=== PATIENT | male | born 1975 | race Caucasian/White ===

== ENCOUNTER 2018-12-18 23:46 | Observation (INO) | payer BC ==
[~2018-12-18] VITALS: Ht 182.9 cm; Wt 145.2 kg
[2018-12-19 00:48] LABS: BASOPHILS ABSOLUTE AUTO 0.06 K/mm3 (0.00-0.23); BASOPHILS PERCENT AUTO 1 % (0-2); EOSINOPHILS ABSOLUTE AUTO 0.18 K/mm3 (0.00-0.68); EOSINOPHILS PERCENT AUTO 2 % (0-6); Hematocrit 42.8 % (37.0-53.0); Hemoglobin 13.7 g/dL (13.5-17.5); IMMATURE GRAN ABSOLUTE AUTO 0.06 K/mm3 (0.00-0.10); IMMATURE GRAN PERCENT AUTO 1 % (0-1); LYMPHOCYTES ABSOLUTE AUTO 3.04 K/mm3 (0.84-5.20); LYMPHOCYTES PERCENT AUTO 33 % (21-46); MONOCYTES PERCENT AUTO 7 % (4-13); Mean Corpuscular HGB 26.8 pg (26.0-34.0); Mean Corpuscular Volume 84 fL (80-100); Mean Platelet Volume 10.6 fL (9.1-12.4); NEUTROPHILS ABSOLUTE AUTO 5.17 K/mm3 (1.96-9.15); NEUTROPHILS PERCENT AUTO 57 % (41-73); Platelet Count 294 K/mm3 (150-400); RDW Coefficient Variation 14.8 % (11.7-14.2); Red Blood Cell Count 5.12 M/mm3 (4.30-5.90); White Blood Cell Count 9.11 K/mm3 (4.00-11.30)
[2018-12-19 01:03] LABS: International Normalized Ratio 0.92; Prothrombin Time Results 9.8 Sec (9.7-11.5)
[2018-12-19 01:05] LABS: Alanine Aminotransfer (ALT/SGP 48 U/L (12-78); Albumin, Blood 3.6 g/dL (3.4-5.0); Albumin/Globulin Ratio 0.9 (0.8-1.8); Alk Phos 89 U/L (50-136); Anion Gap 7 mmol/L (6-16); Aspartate Aminotrans (AST/SGOT 25 U/L (12-37); Bilirubin, Total 0.3 mg/dL (0.1-1.0); Blood Urea Nitrogen 25 mg/dL (8-24); Bun/Creatinine Ratio 19.5 (12.0-20.0); CO2, Blood 30 mmol/L (21-32); Calcium, Blood 9.1 mg/dL (8.5-10.1); Chloride, Blood 100 mmol/L (98-108); Creatinine, Blood 1.28 mg/dL (0.60-1.20); Globulin, Blood 3.8 g/dL (2.2-4.0); Glomerular Filtration Rate >60 (60-); Glucose, Blood 199 mg/dL (70-99); Potassium, Blood 3.8 mmol/L (3.5-5.5); Sodium, Blood 137 mmol/L (136-145); Total Protein, Blood 7.4 g/dL (6.4-8.2); Troponin I 0.019 ng/mL (0.000-0.040)
--- NOTE | 2018-12-19 02:00 | NUR ---
ADMIT NOTE: ADMIT 43 YEAR OLD MALE TO ICU 12, TO MEDICAL STATUS OBSERVATION TO DR THOMPSON FROM [facility]. SSTATUS POST CATH. MONITOR PLACED SHOWING SINUS RHYTHM HEART RATE 79'S TO 80'S, TR BAND INTACT SITE CLEAR PEDAL PULSES PRESENT MILD EDEMA NOTE TO LOWER EXTREMITIES. LUNG SOUNDS DISTANT DIMINISHED SPO2 94-97% ON ROOM AIR PATIENT STATES UNABLE TO TAKE A DEEP FULL BREATH. ABDOMEN SOFT WITH BOWEL SOUNDS FOUR QUADS. REQUEST DRINK OF WATER OBTAINED TOLERATES WELL. RELEASE OF MEDICAL INFORMATION AND BLOOD CONSENT OBTAINED. DR BEAN AND DR THOMPSON AT BEDSIDE. ORDERS NOTED. CONTINUE TO MONITOR AND REPORT CHANGE IN PATIENT CONDITION.
[2018-12-19 04:47] LABS: Anion Gap 7 mmol/L (6-16); Blood Urea Nitrogen 22 mg/dL (8-24); Bun/Creatinine Ratio 19.3 (12.0-20.0); CO2, Blood 28 mmol/L (21-32); Calcium, Blood 8.5 mg/dL (8.5-10.1); Chloride, Blood 103 mmol/L (98-108); Creatinine, Blood 1.14 mg/dL (0.60-1.20); Glomerular Filtration Rate >60 (60-); Glucose, Blood 144 mg/dL (70-99); Potassium, Blood 3.9 mmol/L (3.5-5.5); Sodium, Blood 138 mmol/L (136-145)
[2018-12-19] MEDS ORDERED: OSTERA TABLET1 EACH (04:52)
[2018-12-19] MEDS ORDERED: METF500 PO (04:56)
[2018-12-19] MEDS ORDERED: OMEP20ER PO (04:57)
[2018-12-19 04:59] LABS: CHOL/HDL RATIO 4.4; Cholesterol 161 mg/dL (50-200); HDL Cholesterol 37 mg/dL (>39); LDL/HDL RATIO Unable to Calculate; Low Density Lipoprotein Chol Unable to Calculate mg/dL (0-110); Triglycerides 553 mg/dL (30-160); Very Low Density Lipoprot Chol Unable to Calculate mg/dL (6-32)
[2018-12-19] MEDS ORDERED: HYDCHL12.5 PO (04:59)
[2018-12-19] MEDS ORDERED: Vitamin D2000 UNIT PO (05:01)
[2018-12-19] MEDS ORDERED: JARDIANCE25 MG PO (05:04)
[2018-12-19] MEDS ORDERED: FENO145 PO (05:06)
--- NOTE | 2018-12-19 06:02 | NUR ---
SHIFT SUMMARY; RESTS QUIETLY WHEN UNDISTURBED. MONITOR INTACT SHOWING SINUS RHYTHM HEART RATE 70'S+-80'S. STATES CHEST " STILL FEELS A LITTLE TIGHT" MEDICATED WITH GI COCKTAIL. TR BAND SITE CLEAR ARMBOARD INTACT. LUNG SOUDNS REMAIN DECREASED DISTANT RESPIRATIONS REGULAR AND EASY ON ROOM AIR SPO2 95-97%/ ABDOMEN SOFT WITH BOWEL SOUNDS FOUR QUADS. VOIDS DIXIE URINE PER URINAL. PEDAL PULSES PRESENT. GOOD CAP REFILL. CONTINUE TO MONITOR AND REPORT CHANGE IN PATIENT CONDITION.
--- NOTE | 2018-12-19 07:17 | NUR ---
START OF SHIFT NOTE: RECEIVED REPORT FROM AYANA MONTGOMERY, ASSUMED CARE, PATIENT IS AWAKE, ALERT AND ORIENTED, WEARING CPAP TO SLEEP, DENIES PAIN, AFEBRILE, ARM BOARD ON RIGHT WRIST, TR BAND IN PLACE, HAD 12 CC/HR OF AIR ORIGINALLY, NOW ABOUT 3CC'S LEFT, ANOTEHR 2 CC'S RELEASED, ARMBOARD REAPPLIED, SITE SHOWS NO HEMATOMA, BLEEDING OR OOZING, CALL LIGHT IN REACH, WILL CONTINUE TO MONITOR.
--- NOTE | 2018-12-19 07:58 | NUR ---
PATIENT'S MOTHER ON PHONE, UPDATED ON PATIENT'S CONDITION AND THEN CONNECTED TO ROOM PHONE, VISITORS AT BEDSIDE, PATIENT AWAKE, BLOOD GLUCOSE TAKEN AND COVERED WITH HUMALOG KWIK PEN, PATIENT TOOK COREG PO WITHOUT ANY PROBLEMS SWALLOWING, TR BAND CONTINUES TO BE IN PLACE ON RIGHT RADIAL SITE, NO HEMATOMA, SWELLING, OR BLEEDING NOTED, CUFF NOW DEFLATED, WILL LEAVE IN PLACE FOR ANOTHER HOUR AND CONTINUE TO MONITOR, PATIENT RESTING COMFORTABLY, CALL LIGHT IN REACH, WILL CONTINUE TO MONITOR.
--- NOTE | 2018-12-19 08:29 | NUR ---
DR. CHRISTINA SUTTON TO SEE PATIENT, DISCHARGE ORDERS WRITTEN, PATIENT MAY GO HOME AFTER ORDERED ECHO IS DONE.
[2018-12-19] MEDS ORDERED: ATOR40TA PO (08:52)
[2018-12-19] MEDS ORDERED: CARV6.25 PO (08:53)
--- NOTE | 2018-12-19 08:55 | NUR ---
IMAGING IN TO DO ORDERED ECHO.
--- NOTE | 2018-12-19 09:10 | NUR ---
ATTEMPTED TO CALL [facility] TO [facility] [place], SPOKE WITH TONIO IN THE CALL CENTER, WHO ATTEMTPTED TO CONNECT ME WITH THE PATIENT'S RN TWICE, BOTH TIMES FAILED, THEN I SPOKE WITH MILLICENT AT THE CALL CENTER, WHO THEN PROVIDED ME WITH A FAX NUMBER AND ASKED ME TO FAX THE PRESCRIPTIONS AND THE CHART NOTES TO FAX #: [phone], THEN PATIENT MAY PICK THEM UP.
--- NOTE | 2018-12-19 09:36 | NUR ---
DR. HORN IN TO SEE PATIENT, MAY GO HOME AFTER ECHO AND TROPONIN RESULTS ARE READ.
--- NOTE | 2018-12-19 10:04 | NUR ---
Echocardiogram completed.
[2018-12-19] MEDS ORDERED: Prinivil10 MG PO (10:40)
--- NOTE | 2018-12-19 12:10 | NUR ---
PATIENT WAS DISCHARGED TO HOME, DISCHARGE INSTRUCTIONS VERBAL AND WRITTEN PROVIDED AND EXPLAINED, PATIENT AND HIS MOTHER VERBALIZED UNDERSTANDING, ALL QUESTIONS ANSWERED AND EXPLAINED, PIV'S ON L ARM REMOVED, BOTH WITH TIP AND TUBING INTACT, PATIENT TOLERATED WELL, INCISION SITE ON RIGHT RADIAL COVERED WITH OPSITE, NO BLEEDING, HEMATOMA, OR SWELLING NOTED, PATIENT LEFT HOSPITAL INDEPENDENTLY WALKING OUT.
== END 2018-12-19 12:10 | disposition home or self-care (01) ==
LOC: ER 23:46 → ICUW 23:47 → ER 12-19 01:02 → ICUW 12-19 02:01
PROVIDERS: Emergency Medicine; Hospitalist; ADMIT Internal Medicine Clinical Cardiac Electrophysiology
PROC: B2111ZZ Fluoroscopy of Multiple Coronary Arteries using Low Osmolar Contrast (ICD-10-PCS; principal; 2018-12-19)
DX: I25.82 Chronic total occlusion of coronary artery (principal); E11.9 Type 2 diabetes mellitus without complications; I10 Essential (primary) hypertension; E78.5 Hyperlipidemia, unspecified; E66.01 Morbid (severe) obesity due to excess calories; K22.0 Achalasia of cardia; G47.30 Sleep apnea, unspecified; I08.1 Rheumatic disorders of both mitral and tricuspid valves; Z68.41 Body mass index [BMI] 40.0-44.9, adult; Z87.891 Personal history of nicotine dependence
CPT/HCPCS: 36415; 71045; 80048; 80053; 80061; 82947; 83036; 84443; 84484; 85025; 85347; 85379; 85610; 85730; 93005; 93010; 93306; 93454; 96372; 99152; 99153; 99285-25; C1769; C1894; G0378; J1644; J1650; J2250; J3010; J7030; Q9967

== ENCOUNTER 2019-05-08 11:49 | Day surgery (SDC) | payer OTHER, BC ==
[~2019-05-08] VITALS: Ht 182.9 cm; Wt 150.0 kg
[~2019-05-08 11:49] MED LIST: ASPI325 PO; ATOR40TA PO; CARV6.25 PO; FENO145 PO; HYDCHL12.5 PO; JARDIANCE25 MG PO; METF500 PO; NITR.4SL SL; OMEP20ER PO; OSTERA TABLET1 EACH; PRAZ1 PO; Prinivil10 MG PO; Vitamin D2000 UNIT PO
--- NOTE | 2019-05-08 16:50 | NUR ---
PT ARRIVED TO PCU 3 VIA WC FROM [facility]. EXTENDED RECOVERY, WILL DC HOME TONIGHT. VSS, TR SITE WNL. DISCUSSED R ARM RESTRICTIONS WITH PT. PT STATES THIS IS HIS 2ND ANGIO AND FAMILIAR WITH THE RESTRICTIONS AND AFTER CARE. PT IS INDEP IN RM. ICE WATER GIVEN, NO OTHER NEEDS AT THIS TIME. CONT TO MONITOR.
--- NOTE | 2019-05-08 17:45 | NUR ---
radial access Right radial site with wrist board cd&i. Spo2 monitor on right index finger. Excellent pleth noted. Pt denies numbness, tingling to right hand. Pt compliant with wrist board and limited ROM. Pt served dinner. Continue pot.
--- NOTE | 2019-05-08 19:00 | NUR ---
PT SITTING ON BED VISITING WITH FRIEND. BED SIDE RTEPORT GIVEN TO VICKIE PIÑA. VSS REMAIN STABLE, TR SITE WNL. 5CC AIR ALL READY REMOVED FROM TR BAND, VICKIE REMOVED MORE WHILE IN ROOM. NO OTHER ACUTE CHANGES NOTED.
--- NOTE | 2019-05-08 19:14 | NUR ---
CARE ASSUMPTION PT A&O X4. VSS. TR BAND IN PLACE TO R RADIAL ACCESS SITE. SITE WNL, NO BLEEDING, NO HEMATOMA. ARM BOARD IN PLACE. WILL CONTINUE TO MONITOR AND PROVIDE CARE UNTIL.
--- NOTE | 2019-05-08 21:36 | NUR ---
PT DISCHARGE PT A&0 X4. VSS. R RADIAL SITE RECOVERY WNL, NO BLEEDING, NO HEMATOMA. TR BAND REMOVED @ 2044, 1 HR POST COMPLETE DEFLATION. TRANSPARENT DRESSING PLACED TO SITE AND ARM BOARD IN PLACE. SITE REASSESSED BEFORE PT DEPARTURE @ 2099 W/ NO BLEEDING. PIV REMOVED. DISCHARGE INSTRUCTIONS/RADIAL SITE CARE REVIEWED W/ PT. PT ESCORTED OUT BY PCT @ APPROX 2099 TO MEET AT HOSPITAL ENTRANCE FOR DISCHARGE HOME.
== END 2019-05-08 21:00 | disposition home or self-care (01) ==
LOC: MHTC 11:49 → PCU 16:39 → MHTC 21:00
PROC: B2011ZZ Plain Radiography of Multiple Coronary Arteries using Low Osmolar Contrast (ICD-10-PCS; principal; 2019-05-08)
PROC: 4A023N7 Measurement of Cardiac Sampling and Pressure, Left Heart, Percutaneous Approach (ICD-10-PCS; principal; 2019-05-08)
DX: I25.10 Atherosclerotic heart disease of native coronary artery without angina pectoris (principal); R07.9 Chest pain, unspecified; I25.5 Ischemic cardiomyopathy; I10 Essential (primary) hypertension; E78.00 Pure hypercholesterolemia, unspecified; E78.1 Pure hyperglyceridemia; E11.9 Type 2 diabetes mellitus without complications; I08.1 Rheumatic disorders of both mitral and tricuspid valves; K21.9 Gastro-esophageal reflux disease without esophagitis; E66.01 Morbid (severe) obesity due to excess calories; Z68.41 Body mass index [BMI] 40.0-44.9, adult; Z79.82 Long term (current) use of aspirin; Z79.899 Other long term (current) drug therapy; Z87.891 Personal history of nicotine dependence; Z88.8 Allergy status to other drugs, medicaments and biological substances; Z91.018 Allergy to other foods
CPT/HCPCS: 82947; 85347; 93458; 93571; 99152; 99153; C1769; C1887; C1894; J0153; J1644; J2250; J3010; J7030; Q9967